=== PATIENT | male | born 1950 | race Caucasian/White ===

== ENCOUNTER 2021-05-18 12:42 | Emergency (ER) | payer MEDICARE, BC ==
[~2021-05-18] VITALS: Ht 185.4 cm; Wt 97.5 kg
--- NOTE | 2021-05-18 12:46 | NUR ---
Dr Zaldivar at the bedside for MSE.
[2021-05-18 13:12] LABS: HEMATOCRIT 43.3 % (36.7-47.1); MEAN CORPUSCULAR HEMOGLOBIN 33.6 uug (23.8-33.4); MEAN CORPUSCULAR VOLUME 101.2 fL (73.0-96.2); PLATELET COUNT (AUTO) 165 K/uL (152-348)
--- NOTE | 2021-05-18 13:12 | NUR ---
Pt denies dizziness and nausea, states "I'm fine."
[2021-05-18 13:15] LABS: POTASSIUM 4.3 mmol/L (3.5-5.1)
[2021-05-18 13:52] VITALS: BP 127/77
--- NOTE | 2021-05-18 13:53 | NUR ---
Patient discharged to home in stable condition. Written and verbal after care instructions given. Patient verbalizes understanding of instructions. Stressed follow up or return to ER for worsening s/s.
== END 2021-05-18 13:53 | disposition home or self-care (01) ==
LOC: ER 12:42
DX: R55 Syncope and collapse (principal); R94.31 Abnormal electrocardiogram [ECG] [EKG]; E11.65 Type 2 diabetes mellitus with hyperglycemia
CPT/HCPCS: 36415; 70030-TC; 71045; 85025; 93005; A4663